=== PATIENT | female | born 1990 ===

== ENCOUNTER 2020-11-06 16:27 | Emergency (ER) | payer OTHER ==
[~2020-11-06] VITALS: Ht 167.6 cm; Wt 104.3 kg
== END 2020-11-06 20:03 | disposition home or self-care (01) ==
LOC: ER 16:27
DX: I80.01 Phlebitis and thrombophlebitis of superficial vessels of right lower extremity (principal); F17.290 Nicotine dependence, other tobacco product, uncomplicated
CPT/HCPCS: 93971; 96372; 99283-25; J1885

== ENCOUNTER 2021-05-05 20:39 | Inpatient (IN) | payer OTHER ==
[~2021-05-05] VITALS: Ht 167.6 cm; Wt 99.2 kg
[2021-05-05 21:26] LABS: BASOPHILS ABSOLUTE AUTO 0.02 K/mm3 (0.00-0.23); BASOPHILS PERCENT AUTO 0 % (0-2); EOSINOPHILS PERCENT AUTO 0 % (0-6); Hematocrit 30.9 % (33.0-51.0); Hemoglobin 8.9 g/dL (11.5-16.0); IMMATURE GRAN ABSOLUTE AUTO 0.05 K/mm3 (0.00-0.10); IMMATURE GRAN PERCENT AUTO 1 % (0-1); LYMPHOCYTES ABSOLUTE AUTO 1.05 K/mm3 (0.84-5.20); LYMPHOCYTES PERCENT AUTO 10 % (21-46); MONOCYTES ABSOLUTE AUTO 0.35 K/mm3 (0.16-1.47); MONOCYTES PERCENT AUTO 3 % (4-13); Mean Corpuscular HGB 22.2 pg (26.0-34.0); Mean Corpuscular HGB Conc 28.8 g/dL (31.5-36.5); Mean Corpuscular Volume 77 fL (80-100); Mean Platelet Volume 10.3 fL (9.1-12.4); NEUTROPHILS ABSOLUTE AUTO 9.15 K/mm3 (1.96-9.15); NEUTROPHILS PERCENT AUTO 86 % (41-73); Platelet Count 328 K/mm3 (150-400); RDW Coefficient Variation 15.6 % (11.7-14.2); RDW Standard Deviation 43.2 fL (35.1-46.3); Red Blood Cell Count 4.01 M/mm3 (3.80-5.20); White Blood Cell Count 10.62 K/mm3 (4.00-11.30)
[2021-05-05 21:43] LABS: Alanine Aminotransfer (ALT/SGP 20 U/L (12-78); Albumin/Globulin Ratio 1.1 (0.8-1.8); Alk Phos 52 U/L (50-136); Anion Gap 7 mmol/L (6-16); Aspartate Aminotrans (AST/SGOT 9 U/L (12-37); Bilirubin, Total 0.2 mg/dL (0.1-1.0); Blood Urea Nitrogen 17 mg/dL (8-24); Bun/Creatinine Ratio 23.7 (12.0-20.0); CO2, Blood 23 mmol/L (21-32); Calcium, Blood 9.3 mg/dL (8.5-10.1); Chloride, Blood 107 mmol/L (98-108); Creatinine, Blood 0.72 mg/dL (0.40-1.00); Globulin, Blood 3.7 g/dL (2.2-4.0); Glomerular Filtration Rate >60 (60-); Glucose, Blood 130 mg/dL (70-99); Potassium, Blood 4.2 mmol/L (3.5-5.5); Sodium, Blood 137 mmol/L (136-145); Total Protein, Blood 7.7 g/dL (6.4-8.2)
[2021-05-05] MEDS ORDERED: PENVK250 PO (22:11)
[2021-05-05] MEDS ORDERED: PRED20 PO (22:13)
[2021-05-05 22:22] LABS: Source, Urine Clean Catch
[2021-05-05 22:30] LABS: Bilirubin, Urine Neg (Neg); Blood, Urine Neg (Neg); Glucose Qualitative, Urine Neg (Neg); Ketones, Urine Neg (Neg); Leukocyte Esterase, Urine Neg (Neg); Nitrite, Urine Neg (Neg); Protein, Urine Neg (Neg); Urobilinogen, Urine NORM (Normal); pH, Urine 6.5 (5.0-8.0)
[2021-05-05 22:41] LABS: Appearance, Urine Clear (Clear); Color, Urine Pale Yellow (P-Yellow)
[2021-05-05] MEDS ORDERED: Bentyl20 MG PO (23:59)
[2021-05-07 04:26] LABS: BASOPHILS ABSOLUTE AUTO 0.04 K/mm3 (0.00-0.23); BASOPHILS PERCENT AUTO 0 % (0-2); EOSINOPHILS ABSOLUTE AUTO 0.04 K/mm3 (0.00-0.68); EOSINOPHILS PERCENT AUTO 0 % (0-6); Hematocrit 26.8 % (33.0-51.0); Hemoglobin 7.7 g/dL (11.5-16.0); IMMATURE GRAN ABSOLUTE AUTO 0.04 K/mm3 (0.00-0.10); IMMATURE GRAN PERCENT AUTO 0 % (0-1); LYMPHOCYTES ABSOLUTE AUTO 2.92 K/mm3 (0.84-5.20); LYMPHOCYTES PERCENT AUTO 29 % (21-46); MONOCYTES ABSOLUTE AUTO 0.52 K/mm3 (0.16-1.47); MONOCYTES PERCENT AUTO 5 % (4-13); Mean Corpuscular HGB Conc 28.7 g/dL (31.5-36.5); Mean Corpuscular Volume 77 fL (80-100); Mean Platelet Volume 10.6 fL (9.1-12.4); NEUTROPHILS ABSOLUTE AUTO 6.47 K/mm3 (1.96-9.15); NEUTROPHILS PERCENT AUTO 65 % (41-73); Platelet Count 274 K/mm3 (150-400); RDW Coefficient Variation 15.6 % (11.7-14.2); RDW Standard Deviation 43.4 fL (35.1-46.3); White Blood Cell Count 10.03 K/mm3 (4.00-11.30)
[2021-05-07 04:47] LABS: Alanine Aminotransfer (ALT/SGP 20 U/L (12-78); Albumin, Blood 3.2 g/dL (3.4-5.0); Albumin/Globulin Ratio 1.1 (0.8-1.8); Alk Phos 40 U/L (50-136); Anion Gap 7 mmol/L (6-16); Aspartate Aminotrans (AST/SGOT 10 U/L (12-37); Bilirubin, Total 0.2 mg/dL (0.1-1.0); Blood Urea Nitrogen 19 mg/dL (8-24); Bun/Creatinine Ratio 27.7 (12.0-20.0); CO2, Blood 25 mmol/L (21-32); Calcium, Blood 8.4 mg/dL (8.5-10.1); Chloride, Blood 106 mmol/L (98-108); Creatinine, Blood 0.69 mg/dL (0.40-1.00); Globulin, Blood 2.9 g/dL (2.2-4.0); Glomerular Filtration Rate >60 (60-); Glucose, Blood 90 mg/dL (70-99); Sodium, Blood 138 mmol/L (136-145); Total Protein, Blood 6.1 g/dL (6.4-8.2)
--- NOTE | 2021-05-07 06:34 | NUR ---
End of shift summary Pt pain manged with fentynol, zofran also given for nausea. Abdominal cramping mid abdomen wrapping around. IV fluids going at 125, will continue to monitor ROB Anderson
--- NOTE | 2021-05-07 10:48 | NUR ---
THE PATIENT WAS BROUGHT TO DAY SURGERY FOR HER PROCEDURE.
--- NOTE | 2021-05-07 15:39 | NUR ---
PT ALERT AND ORIENTED, VSS. ABLE TO AMBULATE WITH WALKER AND SBA TO BATHROOM WITH STEADY GAIT. PT AGREEABLE TO DISCHARGE TO FACILITY. TRANSPORT PERSONNEL ARRIVED AND TOOK PATIENT VIA WHEELCHAIR FOR TRANSPORT.
--- NOTE | 2021-05-07 19:40 | NUR ---
SHIFT SUMMARY PT WAS VERY PAINFUL AT START OF SHIFT WITH SOME NAUSEA, MEDICATED PER EMAR. ABLE TO AMBULATE WITH STEADY GAIT AND SBA FOR LINE MANAGEMENT TO BATHROOM. ON ROOM AIR, VSS. PT WENT TO SURGERY AND RETURNED WITH PAMELA DRESSING IN PLACE AT MIDLINE ABDOMINAL INCISION AND ABDOMINAL BINDER IN PLACE. PT RETURNED ON 2 L VIA NASAL CANNULA, TITRATED DOWN TO ROOM AND TOLERATING WELL, VSS OTHERWISE STABLE. PT RETURNED AND COMPLAINED OF 8/10 TO 10/10 PAIN, TORODOL GIVEN AND SYSTEMS ARCHITECT PUMP STARTED PER EMAR. PT REMAINED EXTREMELY PAINFUL, DR. BANEGAS NOTIFIED AND ORDERS FOR ONE TIME DOSE OF 25 MCG FENTANYL GIVEN. PT REMAINED PAINFUL THROUGH SHIFT BUT FLACC DECREASED TO 4 BY END OF SHIFT. PT WAS ABLE TO TOLERATE PO INTAKE OF WATER, APPLE JUICE AND JELLO. ABLE TO TRANSFER TO BEDSIDE COMMODE WITH ONE ASSIST.
--- NOTE | 2021-05-07 19:47 | NUR ---
SPOKE WITH THE PATIENT'S MOTHER PER PT REQUEST, PROVIDED UPDATE AND QUESTIONS ANSWERED TO SATISFACTION.
[2021-05-08 04:22] LABS: BASOPHILS ABSOLUTE AUTO 0.02 K/mm3 (0.00-0.23); BASOPHILS PERCENT AUTO 0 % (0-2); EOSINOPHILS ABSOLUTE AUTO 0.01 K/mm3 (0.00-0.68); EOSINOPHILS PERCENT AUTO 0 % (0-6); Hematocrit 27.1 % (33.0-51.0); Hemoglobin 7.7 g/dL (11.5-16.0); IMMATURE GRAN ABSOLUTE AUTO 0.05 K/mm3 (0.00-0.10); IMMATURE GRAN PERCENT AUTO 0 % (0-1); LYMPHOCYTES ABSOLUTE AUTO 1.25 K/mm3 (0.84-5.20); LYMPHOCYTES PERCENT AUTO 9 % (21-46); MONOCYTES ABSOLUTE AUTO 0.77 K/mm3 (0.16-1.47); MONOCYTES PERCENT AUTO 6 % (4-13); Mean Corpuscular HGB 21.9 pg (26.0-34.0); Mean Corpuscular HGB Conc 28.4 g/dL (31.5-36.5); Mean Corpuscular Volume 77 fL (80-100); Mean Platelet Volume 11.1 fL (9.1-12.4); NEUTROPHILS ABSOLUTE AUTO 11.58 K/mm3 (1.96-9.15); NEUTROPHILS PERCENT AUTO 85 % (41-73); Platelet Count 302 K/mm3 (150-400); RDW Coefficient Variation 15.5 % (11.7-14.2); RDW Standard Deviation 43.1 fL (35.1-46.3); Red Blood Cell Count 3.51 M/mm3 (3.80-5.20); White Blood Cell Count 13.68 K/mm3 (4.00-11.30)
--- NOTE | 2021-05-08 04:28 | NUR ---
SHIFT SUMMARY NO ACUTE CHANGES THIS SHIFT. VSS. AXO. GETTING OOB TO BSC WELL. ON RA. ELECTRONIC TESTER FENTANYL PUMP INFUSING ORDERED. PT MUCH MORE PAINFUL AT BEGINNING OF SHIFT VS END OF SHIFT. PRN TORADOL BEING GIVEN FOR BREAKTHROUGH. CALLED DR BANEGAS AT BEGINNING OF SHIFT STATING PT STILL STRUGGLING WITH PAIN AT THAT POINT, PHYSICIAN STATES ELECTRONIC TESTER DOSE IS QUITE HIGH AND THAT IT WOULD BE BEST NOT TO INCREASE NARCOTICS AT THIS POINT. HEAT APPLIED AND REST UNINTERRUPTED ALONG WITH ELECTRONIC TESTER HAVE APPEARED TO HAVE HELPED. ABD BINDER REMAINS IN PLACE. PAMELA PUMP INTACT. OTHERWISE, PT USING CALL LIGHT APPRORPRIATELY. BED IN LOW POSITION.
[2021-05-08 04:39] LABS: Anion Gap 7 mmol/L (6-16); Blood Urea Nitrogen 7 mg/dL (8-24); Bun/Creatinine Ratio 11.2 (12.0-20.0); CO2, Blood 26 mmol/L (21-32); Calcium, Blood 8.4 mg/dL (8.5-10.1); Chloride, Blood 104 mmol/L (98-108); Creatinine, Blood 0.63 mg/dL (0.40-1.00); Glomerular Filtration Rate >60 (60-); Glucose, Blood 138 mg/dL (70-99); Potassium, Blood 4.4 mmol/L (3.5-5.5); Sodium, Blood 137 mmol/L (136-145)
--- NOTE | 2021-05-08 17:33 | NUR ---
SHIFT SUMMARY PT HAS BEEN RESTING IN ROOM, PT WILL GET UP TO COMMODE ON THEIR OWN AND BACK TO BED WITH NO INCIDENT. PT WILL CALL FOR ASSISTANCE WHEN APPROPRIATE. PT HAS C/O PAIN TREATED WITH HEAT, POSITIONING, REST, DRYWALL FOREMAN PUMP, AND PRNs. PT HAS TOLERATED FULL LIQUID WELL. PT HAS INTERMITTENT NAUSEA THAT IS RESOLVED WITH PRN ONDANSETRON. VITAL SIGNS STABLE, NO ACUTE CHANGES TO CONDITION.
--- NOTE | 2021-05-08 18:00 | NUR ---
SHIFT SUMMARY PT TRANSFERRED FROM PCU, PT VOIDING WELL, TOLERATING PO, SBA TO GET INTO BED FROM , REP PAIN MANAGED WELL WITH REGULATORY ASSISTANT-INFUSING PER EMAR ALONG WITH KVO LR. REPORT PROVIDED TO BIANCA RIVAS.
--- NOTE | 2021-05-09 04:30 | NUR ---
PT IS A&OX4, MODERATE ASSIST OOB, USES FWW TO BSC. PT ON A HAND THERMAL CUTTER PUMP FOR PAIN, CARTRIDGE REPLACED AT 2300 AND EXCESS WASTED WITH MANUEL Rivero. DURING THE NIGHT PT COMPLAINED OF 8/10 PAIN AND NAUSEA, WAS EDUCATED ON HOW TO USE A HAND THERMAL CUTTER PUMP, ALSO TORADOL AND ZOFRAN GIVEN TO PATIENT. PT SPENDS MOST OF THE NIGHT IN BED, SLEEPS INTERMITTENTLY. WILL CONTINUE TO MONITOR THIS PATIENT.
--- NOTE | 2021-05-09 11:30 | NUR ---
CORK SORTER DC'D, PO ORAL NARCOTICS WILL BE GIVEN NOW
--- NOTE | 2021-05-09 16:46 | NUR ---
SHIFT SUMMARY PT A&OX4, VSS/RA, IV SL. POD2 EXP LAP, PAMELA WNL, WEARS ABD BINDER WHEN AMBULATING. PAIN MANAGED WITH 10 MG NORCO AND TORADOL. ANJELICA PO REG DIET. VOIDING WELL, PASSING FLATUS, BT+, NO BM YET. AMBULATING INDEPENDENTLY IN ROOM/TO BRP/IN HALLWAY, UP TO CHAIR T/O SHIFT. WILL REPORT TO ONCOMING BIANCA RN.
[2021-05-10] MEDS ORDERED: HYDR1TAB94 PO (11:36)
--- NOTE | 2021-05-10 13:38 | NUR ---
DISCHARGE SUMMARY PT POD #3 FOR EX LAP FOR VOLVULUS REDUCTION AND HERNIA REPAIR. PAMELA DRESSING DRY AND INTACT AT MIDLINE. PT TO REMOVE PAMELA DRESSING ON THURSDAY PER INSTRUCTIONS FROM SURGEON. TREATED FOR PAIN PER EMR. TOLERATING DIET AND HAD A BM TODAY. ABLE TO AMBULATE IND IN ROOM. WRITTEN PRESCRIPTION GIVEN TO PATIENT AND PRESCRIPTIONS ALSO FAXED TO [facility]. DC'D HOME WITH PARENTS.
== END 2021-05-10 13:48 | disposition home or self-care (01) | DRG 356 ==
LOC: ER 20:39 → PCU 20:41 → ER 05-06 00:14 → PCU 05-07 02:37 → ER 05-07 02:37 → PCU 05-07 02:37 → SURS 05-08 18:31
PROVIDERS: Physician Assistant; ADMIT Surgery
PROC: 0DQV0ZZ Repair Mesentery, Open Approach (ICD-10-PCS; principal; 2021-05-07 12:00)
DX: K46.0 Unspecified abdominal hernia with obstruction, without gangrene (principal); K56.2 Volvulus; H91.90 Unspecified hearing loss, unspecified ear; F17.290 Nicotine dependence, other tobacco product, uncomplicated; Z98.84 Bariatric surgery status
CPT/HCPCS: 36415; 80048; 80053; 81003; 83605; 83690; 84703; 85025; 86850; 86900; 86901; 96375; 96376; 99284; A9270; G0378; J0295; J1100; J1885; J2250; J2405; J2704; J2765; J3010; J7050; J7120; J7512

== ENCOUNTER 2021-05-06 19:57 | Emergency (ER) | payer OTHER ==
[~2021-05-06] VITALS: Ht 167.6 cm; Wt 96.6 kg
[~2021-05-06 19:57] MED LIST: Bentyl20 MG PO; PENVK250 PO; PRED20 PO
[2021-05-06 22:11] LABS: BASOPHILS ABSOLUTE AUTO 0.04 K/mm3 (0.00-0.23); BASOPHILS PERCENT AUTO 0 % (0-2); EOSINOPHILS ABSOLUTE AUTO 0.02 K/mm3 (0.00-0.68); EOSINOPHILS PERCENT AUTO 0 % (0-6); Hematocrit 28.1 % (33.0-51.0); Hemoglobin 8.1 g/dL (11.5-16.0); IMMATURE GRAN ABSOLUTE AUTO 0.05 K/mm3 (0.00-0.10); IMMATURE GRAN PERCENT AUTO 0 % (0-1); LYMPHOCYTES ABSOLUTE AUTO 3.28 K/mm3 (0.84-5.20); LYMPHOCYTES PERCENT AUTO 23 % (21-46); MONOCYTES ABSOLUTE AUTO 0.76 K/mm3 (0.16-1.47); MONOCYTES PERCENT AUTO 5 % (4-13); Mean Corpuscular HGB Conc 28.8 g/dL (31.5-36.5); Mean Corpuscular Volume 76 fL (80-100); Mean Platelet Volume 10.8 fL (9.1-12.4); NEUTROPHILS ABSOLUTE AUTO 10.32 K/mm3 (1.96-9.15); NEUTROPHILS PERCENT AUTO 71 % (41-73); Platelet Count 291 K/mm3 (150-400); RDW Coefficient Variation 15.7 % (11.7-14.2); RDW Standard Deviation 43.1 fL (35.1-46.3); Red Blood Cell Count 3.69 M/mm3 (3.80-5.20); White Blood Cell Count 14.47 K/mm3 (4.00-11.30)
[2021-05-06 22:28] LABS: Alanine Aminotransfer (ALT/SGP 20 U/L (12-78); Albumin, Blood 3.5 g/dL (3.4-5.0); Albumin/Globulin Ratio 1.1 (0.8-1.8); Alk Phos 42 U/L (50-136); Anion Gap 4 mmol/L (6-16); Aspartate Aminotrans (AST/SGOT 9 U/L (12-37); Bilirubin, Total 0.2 mg/dL (0.1-1.0); Blood Urea Nitrogen 23 mg/dL (8-24); CO2, Blood 23 mmol/L (21-32); Calcium, Blood 8.2 mg/dL (8.5-10.1); Chloride, Blood 109 mmol/L (98-108); Creatinine, Blood 0.82 mg/dL (0.40-1.00); Globulin, Blood 3.2 g/dL (2.2-4.0); Glomerular Filtration Rate >60 (60-); Glucose, Blood 100 mg/dL (70-99); Potassium, Blood 4.2 mmol/L (3.5-5.5); Sodium, Blood 136 mmol/L (136-145); Total Protein, Blood 6.7 g/dL (6.4-8.2)
[2021-05-06 23:21] LABS: Source, Urine Clean Catch
[2021-05-06 23:24] LABS: Bilirubin, Urine Neg (Neg); Blood, Urine Neg (Neg); Glucose Qualitative, Urine Neg (Neg); Ketones, Urine Neg (Neg); Leukocyte Esterase, Urine 2+ (Neg); Nitrite, Urine Neg (Neg); Protein, Urine 2+ (Neg); Specific Gravity, Urine 1.025 (1.003-1.022); Urobilinogen, Urine 1+ (Normal)
[2021-05-06 23:43] LABS: Appearance, Urine Hazy (Clear); Color, Urine Yellow (P-Yellow)
[2021-05-06 23:47] LABS: Bacteria Many /hpf; Mucus Light (0-Heavy); Red Blood Cells, Urine 0-2 /hpf (0-2); Squamous Epithelial Cells Few /hpf (Few)
[2021-05-07 02:41] LABS: International Normalized Ratio 1.04; Prothrombin Time Results 10.9 Sec (9.7-11.5)
== END 2021-05-07 02:32 | disposition other institution (70) ==
LOC: ER 19:57
PROVIDERS: Student in an Organized Health Care Education/Training Program
DX: K56.2 Volvulus (principal); F17.290 Nicotine dependence, other tobacco product, uncomplicated
CPT/HCPCS: 74177; 80053; 81001; 83605; 83690; 85025; 85610; 85730; 86850; 86900; 86901; 87086; C9113; J0696; J0780; J1170; J7120; Q9967

== ENCOUNTER 2021-12-31 07:54 | Day surgery (SDC) | payer OTHER ==
[~2021-12-31] VITALS: Ht 165.1 cm; Wt 94.4 kg
[~2021-12-31 07:54] MED LIST changes: +B-12500 MC2 PO; +CEROVITE PO; +HYDR1TAB94 PO; +PROTONIX40 M9 PO; +SUCR1 PO
[2021-12-31] MEDS ORDERED: MASOPHEN325 M3 (08:17)
[2021-12-31] MEDS ORDERED: ONDA4 (08:17)
--- NOTE | 2021-12-31 08:56 | NUR ---
12/31/21 0856 Marlene Esteves ATTEMPT X3 ONE IN RIGHT HAND, ONE IN RIGHT AC, ONE IN LEFT HAND WITH SUCCESS IN LEFT INNER WRIST.
== END 2021-12-31 09:55 | disposition home or self-care (01) ==
LOC: ORSCSDS 07:54
PROVIDERS: Surgery
PROC: 0DJ08ZZ Inspection of Upper Intestinal Tract, Via Natural or Artificial Opening Endoscopic (ICD-10-PCS; principal; 2021-12-31 09:15)
DX: R10.13 Epigastric pain (principal); R13.19 Other dysphagia; Z98.84 Bariatric surgery status; Z87.11 Personal history of peptic ulcer disease; K44.9 Diaphragmatic hernia without obstruction or gangrene; E66.9 Obesity, unspecified; Z68.35 Body mass index [BMI] 35.0-35.9, adult; Z79.899 Other long term (current) drug therapy
CPT/HCPCS: J2250; J2704; J7120

== ENCOUNTER → 2024-02-15 | Outpatient (CLI) | payer OTHER ==
[~2024-02-15] MED LIST changes: +MASOPHEN325 M3; +ONDA4
== END ==
LOC: LAB 12:24 → LAB SHORT 12:24
DX: M54.50 Low back pain, unspecified (principal)
CPT/HCPCS: 87086